=== PATIENT | female | born 1950 | race Caucasian/White ===

== ENCOUNTER 2017-06-26 12:50 | Day surgery (SDC) | payer BC ==
[2017-06-26] MEDS ORDERED: PROPOFOL 40 ML (14:46)
== END 2017-06-27 11:51 | disposition home or self-care (01) ==
LOC: GIL 12:50
DX: Z12.11 Encounter for screening for malignant neoplasm of colon (principal); D12.6 Benign neoplasm of colon, unspecified; K64.8 Other hemorrhoids
CPT/HCPCS: 45380; 88305